=== PATIENT | female | born 1955 | race Caucasian/White ===

== ENCOUNTER → 2017-11-07 10:19 | Outpatient (CLI) | payer BC, OTHER, SELFPAY ==
[2017-11-07 11:04] LABS: Alanine Aminotransferase 20 U/L (12-78); Albumin Level 3.5 gm/dL (3.4-5.0); Albumin/Globulin Ratio 0.8 (1.1-1.8); Alkaline Phosphatase 148 U/L (46-116); Anion Gap 11.9 mEq/L (5-15); Aspartate Amino Transferase 13 U/L (15-37); Bilirubin,Total 0.4 mg/dL (0.2-1.0); Blood Urea Nitrogen 15 mg/dL (7-18); C-Reactive Protein 0.8 mg/L (0.0-0.9); Calcium 8.9 mg/dL (8.5-10.1); Carbon Dioxide 27 mmol/L (21.0-32.0); Chloride 105 mmol/L (98-107); Chol/HDL Ratio 2.7 (1-3.5); Cholesterol 131 mg/dL (140-200); Creatinine,Serum 1.29 mg/dL (0.55-1.02); Estimated Glomerular Filt Rate 42 ml/min (>60); GFR (African American) 50 ML/MIN (>60); Globulin 4.2 gm/dl (1.3-3.2); Glucose 103 mg/dL (74-106); HDL Cholesterol 49 mg/dL (29-89); LDL Cholesterol 61 mg/dL (0-130); Potassium 3.9 mmoL/L (3.5-5.1); Sodium 140 mmol/L (136-145); Total Protein,Serum 7.7 gm/dL (6.4-8.2); Triglycerides 104 mg/dL (30-200); VLDL Cholesterol 21 mg/dL (0-40)
[2017-11-07 12:01] LABS: Erythrocyte Sedimentation Rate 58 mm/hr (0-30)
[2017-11-10 19:15] LABS: RA Latex Turbid. <10.0 IU/mL (0.0-13.9)
[2017-11-11 18:33] LABS: Anti-Cyclic Citrullinated Pept 19 units (0-19)
[2017-11-11 18:34] LABS: Antinuclear Antibodies, IFA Positive (.)
== END ==
PROVIDERS: Visit Provider Nurse Practitioner Family
DX: M25.541 Pain in joints of right hand (principal); M25.50 Pain in unspecified joint; Z00.00 Encounter for general adult medical examination without abnormal findings
CPT/HCPCS: 36415; 80053; 80061; 84443; 85651; 86038; 86140; 86200; 86431

== ENCOUNTER → 2017-11-22 11:06 | Outpatient (CLI) | payer BC, OTHER, SELFPAY ==
--- NOTE | 2017-11-22 11:13 | XR_ITS ---
XR wrist RT min 3V HISTORY: Pain ITS.REASON: PAIN IN JOINT BILAT HAND ORDERING PHYSICIAN: Dejah Laughlin PATIENT AGE: 62 years COMPARISON: None FINDINGS: No fracture or dislocation. No lytic or blastic change. There is normal mineralization.. The joint spaces are well-preserved. No significant degenerative/arthritic changes. No erosive changes evident.. IMPRESSION: Negative wrist
--- NOTE | 2017-11-22 11:13 | XR_ITS ---
XR wrist LT min 3V HISTORY: Wrist pain ITS.REASON: PAIN IN JOINT BILAT HAND ORDERING PHYSICIAN: Dejah Laughlin PATIENT AGE: 62 years COMPARISON: None FINDINGS: No fracture or dislocation. No lytic or blastic change. There is normal mineralization.. The joint spaces are well-preserved. No significant degenerative/arthritic changes. There is a faint lucency of the distal shaft of the ulna measuring approximately 2 mm. This is of questioned clinical significance and only visible on the AP view. IMPRESSION: No acute finding of the wrist. Faint lucency of the distal ulna nonspecific. Follow-up may confirm stability
--- NOTE | 2017-11-22 11:13 | XR_ITS ---
XR hand RT min 3V HISTORY: Hand pain ITS.REASON: PAIN IN JOINT BILAT HAND ORDERING PHYSICIAN: Dejah Laughlin PATIENT AGE: 62 years COMPARISON: None FINDINGS: No fracture or dislocation. No lytic or blastic change. There is normal mineralization.. The joint spaces are well-preserved. No significant degenerative/arthritic changes. No erosive changes evident.. IMPRESSION: Negative right hand, no acute finding
--- NOTE | 2017-11-22 11:13 | XR_ITS ---
XR hand LT min 3V HISTORY: ITS.REASON: PAIN IN JOINT BILAT HAND ORDERING PHYSICIAN: Dejah Laughlin PATIENT AGE: 62 years COMPARISON: None FINDINGS: No fracture or dislocation. No lytic or blastic change. There is normal mineralization.. Mild osteoarthritic changes are present at the PIP and DIP of the second digit. No erosive changes evident. 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
== END ==
PROVIDERS: PCP Internal Medicine Adolescent Medicine; Visit Provider Nurse Practitioner Family
DX: M25.541 Pain in joints of right hand (principal); M25.542 Pain in joints of left hand
CPT/HCPCS: 73110; 73130

== ENCOUNTER → 2018-03-05 08:36 | Outpatient (CLI) | payer MEDICARE, OTHER, SELFPAY ==
--- NOTE | 2018-03-05 | CI_ITS ---
Cerebrovascular Exam Indications: 780.2 Syncope and collapse. IMPRESSIONS 1. The bilateral vertebral arteries are patent with normal antegrade flow. 2. Study suggests less than 20% stenosis involving the right internal carotid artery and the left internal carotid artery. History: Coronary artery disease. Risk factors: Hypertension. Hyperlipidemia. Carotid duplex study. Complete study and Doppler flow study including spectral analysis, color and rowley scale imaging. Location: Vascular laboratory. Patient status: Outpatient. Tables: Arterial flow: + +--------+--------+ Location V sys V ed + +--------+--------+ Right CCA - proximal 47.1cm/s 13.4cm/s + +--------+--------+ Right CCA - distal 69.9cm/s 18.9cm/s + +--------+--------+ Right ECA 178cm/s -------- + +--------+--------+ Right ICA - proximal 66cm/s 18.9cm/s + +--------+--------+ Right ICA - mid 56.6cm/s 22cm/s + +--------+--------+ Right ICA - distal 75.4cm/s 18.9cm/s + +--------+--------+ Right vertebral 56.6cm/s -------- + +--------+--------+ Left CCA - proximal 66.8cm/s 13.4cm/s + +--------+--------+ Left CCA - distal 68.4cm/s 19.6cm/s + +--------+--------+ Left ECA 87.2cm/s -------- + +--------+--------+ Left ICA - proximal 48.7cm/s 16.5cm/s + +--------+--------+ Left ICA - mid 85.6cm/s 19.6cm/s + +--------+--------+ Left ICA - distal 116cm/s 28.1cm/s + +--------+--------+ Left vertebral 43.2cm/s 0.8cm/s + +--------+--------+ Velocity ratios: + + + + + + Right, V sys Right, V ed Left, V sys Left, V ed + + + + + + Max ICA/dist CCA 1.08 1.16 1.7 1.43 + + + + + + (Report amended ) Electronically signed by: Kyle Zuniga [id number]
--- NOTE | 2018-03-05 08:45 | CA_ITS ---
PROCEDURE: 2-D M-mode and color Doppler study INDICATIONS FOR THE TEST: Chest pain COPD Heart Murmur Tobacco Smoking Palpitations Fatigue SyncopeX Edema HypertensionXDiabetes Mellitus Rheumatic Fever SOB SMALLS ObesityXHyperlipidemiaX Family History HD Additional History CAD BUBBLE STUDY DONE PATIENT INFORMATION HEIGHT: 65 WEIGHT:211 GENDER: Female B/P:144/67 2-D/M-MODE INTERPRETATION: 2-D MEASUREMENTS OBSERVED VALUES IN CMS Right Ventricular Dimension (RVDd) 2.6 Interventricular Septum (Thickness)(IVsd) 1.0 Left Ventricular Internal Dimensions(LVIDd) 5.6 Left Ventricular Posterior Wall (Thickness)(LVPWd) 1.0 Aortic Root 3.2 Aortic Cusp Separation 1.5 Left Atrial Dimensions (LAD) 4.2 2D 1. Left atrium is mildly enlarged, left ventricle is normal size, visually estimated ejection fraction 55% with no obvious regional wall motion abnormality. 2. The right atrium and right ventricle are normal size and contractility. 3. The aortic valve is minimally thickened and fibrosed, morphology is not well visualized. 4. The mitral and tricuspid valve are structurally normal. 5. Pulmonic valve is poorly visualized. 6. No significant pericardial effusion noted. DOPPLER INTERROGATION: Doppler interrogation of the aortic, mitral and tricuspid valve reveals presence of mild aortic, mild mitral and tricuspid regurgitation, tricuspid and enteric velocity insufficient for calculation of the right ventricular systolic pressure, grade 1 diastolic dysfunction seen with tissue Doppler evidence of raised left atrial pressure. Agitated saline contrast study fails to identify intracardiac shunt. CONCLUSION: 1. Left atrium is mildly enlarged, left ventricle is normal size, visually estimated ejection fraction 55% with no obvious regional wall motion abnormality, grade 1 diastolic dysfunction seen with tissue Doppler evidence of raised left atrial pressure. 2. Mild aortic, mild mitral and tricuspid regurgitation 3. Agitated saline contrast study fails to left ventricular ejection. 4. No significant pericardial effusion noted.
== END ==
PROVIDERS: PCP Internal Medicine Adolescent Medicine; Visit Provider Nurse Practitioner Family
DX: R55 Syncope and collapse (principal); R42 Dizziness and giddiness
CPT/HCPCS: 93306; 93880

== ENCOUNTER → 2018-06-22 15:57 | Outpatient (CLI) | payer MEDICARE, OTHER, SELFPAY ==
--- NOTE | 2018-06-22 16:04 | MM_ITS ---
MM Dig screening mamm BI w/CAD ORDERING PHYSICIAN : Jesus Colunga MD PATIENT AGE: 63 years GENDER: Female COMPARISON: May 2016, June 2017, April 2015 INDICATION: ITS.REASON: screening. No hormones. No new complaints. Family history. paternal aunt with breast cancer TECHNIQUE: Standard CC and MLO images were obtained. R2 CAD reviewed. FINDINGS: Low-density breast bilaterally with fairly generalized fatty replacement. No dominant mass nor suspicious calcifications either breast. Minimal residual fibroglandular elements. . No areas of concern. Bilateral follow-up in one year adequate. IMPRESSION: Stable bilateral mammogram. No significant new findings. Follow-up in one year Low-density breast. BI-RADS Category: 1 Negative RECOMMENDED FOLLOW-UP: 1YR 1 YEAR FOLLOW-UP (A letter has been sent to the patient regarding results of the study.)
== END ==
PROVIDERS: PCP Internal Medicine Adolescent Medicine; Visit Provider Obstetrics & Gynecology
DX: Z12.31 Encounter for screening mammogram for malignant neoplasm of breast (principal)
CPT/HCPCS: 77067

== ENCOUNTER → 2019-06-28 09:57 | Outpatient (CLI) | payer MEDICARE, OTHER, SELFPAY ==
--- NOTE | 2019-06-28 10:04 | XR_ITS ---
PROCEDURE: XR DEXA AXIAL SKELETON CLINICAL HISTORY: SCREENING COMPARISON: No exams were available for comparison FINDINGS: L1-L4 density is 1.156 grams/centimeters sq with T-score of -0.2. Right femoral neck density is 0.795 grams/centimeters sq with T-score -1.7 IMPRESSION: Osteopenia with moderate fracture risk. Treatment advised. Suggest follow-up exam June 2021 Dictated by: Kyle Zuniga MD 06/28/2019 15:46 Electronically signed by Kyle Zuniga MD in [place] 06/28/2019 15:46
== END ==
PROVIDERS: PCP Internal Medicine Adolescent Medicine; Visit Provider Obstetrics & Gynecology
DX: Z78.0 Asymptomatic menopausal state; M85.89 Other specified disorders of bone density and structure, multiple sites; Z13.820 Encounter for screening for osteoporosis
CPT/HCPCS: 77080

== ENCOUNTER → 2019-07-03 16:44 | Outpatient (CLI) | payer MEDICARE, OTHER, SELFPAY ==
--- NOTE | 2019-07-03 16:46 | MM_ITS ---
PROCEDURE: MM DIG SCREENING MAMM BI W/CAD Patient Age:64Y CLINICAL INDICATION: screening no hormones no new complaints Family history: Paternal aunt with breast cancer COMPARISON: [facility] DIG MAMM-SCREEN ABHAY from 04/29/2013 [facility] DIG MAMM-SCREEN ABHAY from 05/02/2014 [facility] DIG MAMM-SCREEN ABHAY from 05/04/2015 [facility] DIG MAMM-SCREEN ABHAY from 05/24/2016 [facility] DIG MAMM-SCREEN ABHAY W/CAD from 06/20/2017 [facility] MM Dig screening mamm BI w/CAD from 06/22/2018 TECHNIQUE: Standard CC and MLO images were obtained. R2 CAD reviewed. FINDINGS: Generalized fatty replacement, low-density breast pattern. Minimal residual fibroglandular elements mammography is more optimal in breast of this character. No dominant nor suspicious mass but no suspicious calcifications but no significant new findings. CAD computer review highlights no areas of concern either Bilateral follow-up 1 year recommended IMPRESSION: Stable bilateral mammogram. generalized fatty replacement with minimal residual fibroglandular elements . Bilateral follow-up 1 year recommended BI-RAD Category: 1 Negative FOLLOW-UP: 1YR 1 Year Follow-up (A letter has been sent to the patient regarding results of the study.) Dictated by: Nathan Waters MD 07/06/2019 11:14 Electronically signed by Nathan Waters MD in [place] 07/06/2019 11:14
== END ==
PROVIDERS: PCP Internal Medicine Adolescent Medicine; Visit Provider Obstetrics & Gynecology
DX: Z12.31 Encounter for screening mammogram for malignant neoplasm of breast (principal)
CPT/HCPCS: 77067

== ENCOUNTER → 2019-09-16 09:10 | Outpatient (POV) | payer MEDICARE, OTHER, SELFPAY ==
[2019-09-16 12:07] LABS: Alanine Aminotransferase 14 U/L (12-78); Albumin Level 3.2 gm/dL (3.4-5.0); Albumin/Globulin Ratio 0.9 (1.1-1.8); Alkaline Phosphatase 115 U/L (46-116); Anion Gap 13.2 mEq/L (5-15); Aspartate Amino Transferase 11 U/L (15-37); Bilirubin,Total 0.4 mg/dL (0.2-1.0); Blood Urea Nitrogen 17 mg/dL (7-18); Calcium 8.9 mg/dL (8.5-10.1); Carbon Dioxide 26 mmol/L (21.0-32.0); Chloride 105 mmol/L (98-107); Chol/HDL Ratio 3.1 (1-3.5); Cholesterol 160 mg/dL (140-200); Creatinine,Serum 1.13 mg/dL (0.55-1.02); Estimated Glomerular Filt Rate 48 ml/min (>60); GFR (African American) 58 ML/MIN (>60); Globulin 3.6 gm/dl (1.3-3.2); Glucose 98 mg/dL (74-106); HDL Cholesterol 52 mg/dL (29-89); LDL Cholesterol 87 mg/dL (0-130); Potassium 4.2 mmoL/L (3.5-5.1); Sodium 140 mmol/L (136-145); Thyroid Stimulating Hormone 3.27 uIU/ml (0.358-3.740); Total Protein,Serum 6.8 gm/dL (6.4-8.2); Triglycerides 105 mg/dL (30-200); VLDL Cholesterol 21 mg/dL (0-40)
[2019-09-18 07:40] LABS: Vitamin D 25 Hydroxy 20.9 ng/mL (30.0-100.0)
== END ==
PROVIDERS: Visit Provider Nurse Practitioner Family
DX: I10 Essential (primary) hypertension (principal); E78.5 Hyperlipidemia, unspecified; M85.80 Other specified disorders of bone density and structure, unspecified site; E55.9 Vitamin D deficiency, unspecified
CPT/HCPCS: 36415; 80053; 80061; 82652; 84443

== ENCOUNTER → 2019-12-30 09:03 | Outpatient (CLI) | payer MEDICARE, OTHER, SELFPAY ==
--- NOTE | 2019-12-30 09:03 | XR_ITS ---
PROCEDURE: XR DEXA AXIAL SKELETON CLINICAL HISTORY: osteoporosis COMPARISON: No exams were available for comparison FINDINGS: Right femoral neck density is 0.653 grams/centimeters sq with T-score -1.8. Left total femur density is 0.792 grams/centimeters sq with a T-score of -1.2. L1-L4 density has a T-score -0 6. IMPRESSION: Osteopenia with moderate fracture risk. Treatment advised. Suggest follow-up exam in 2 years Dictated by: Kyle Zuniga MD 12/30/2019 14:58 Electronically signed by Kyle Zuniga MD in [place] 12/30/2019 14:58
== END ==
PROVIDERS: PCP Internal Medicine Adolescent Medicine; Visit Provider Obstetrics & Gynecology
DX: M81.0 Age-related osteoporosis without current pathological fracture (principal)
CPT/HCPCS: 77080

== ENCOUNTER → 2020-03-16 07:10 | Outpatient (CLI) | payer MEDICARE, OTHER, SELFPAY ==
--- NOTE | 2020-03-16 | CA_ITS ---
APPROVED REPORT Exam: Pharmacologic Technologist: Tina Rodríguez Ht: 5 ft 5 in Wt: 214 lbs BSA: 2.04 m2 HR: 50 bpm BP: 143/63 mmHg Indications: Angina, CAD, Dizziness Medical History Medications: Atorvastatin,,,,, Buspirone,,,,, Calcium,,,,, Vitamin D,,,,, DOxazosin,,,,, Sertraline,,,,, Raloxifene,,,,, Potassium,,,,, Stress Test Details Test: LEXISCAN HR Resting HR: 51 bpm Max Heart Rate (APMHR): 153 bpm Max HR Achieved: 62 bpm Target HR (85% APMHR): 130 bpm % of APMHR: 40 Recovery HR: 53 bpm BP Resting BP: 143.0/63.0 mmHg Max BP: 143.0/63.0 mmHg Recovery BP: 129.0/61.0 mmHg ECG Clinical Exercise duration: 04:00 min Highest Stage Achieved: Stress ECG Conclusion Resting ECG: Sinus bradycardia Lexiscan portion completed. Patient complained of shortness of breath during peak infusion. Symptoms: Shortness of breath during peak infusion, resolved in recovery. No chest pain. Arrhythmias/Ectopy: No ectopy ST-T Changes: Less than 1.[address] depression. Conclusion: Images to follow. Electronically signed by : Vladislav Martin, 03/16/2020 19:24:08
--- NOTE | 2020-03-16 07:10 | NM_ITS ---
APPROVED REPORT Exam: Nuclear Stress Test Indication: Chest pain, CAD, HTN, High cholesterol, Family history Patient Location: Outpatient Stress Tech: Tina Rodríguez [place] Tech:Gisel Fraire, ARRT, RT (R)(N) History: Chest pain, CAD, HTN, High cholesterol, Family history Procedure: Patient received a 0.4 mg of intravenous Lexiscan, resting heart rate 50 bpm, resting blood pressure 143/63 mmHg, with Lexiscan maximum heart rate achived was 55 bpm which is Less than 85 % of the maximum predicted heart rate and blood pressure was 118/73 mmHg. With Lexiscan, patient denied any complaint of chest pain. Electrocardiogram Resting electrocardiogram shows sinus bradycardia, with Lexiscan there is less than 1.[address] segment depression noted from baseline EKG, the EKG portion of the Lexiscan Myoview is nondiagnostic. Cardiac Stress and Resting SPECT Images: Cardiac Stress and Resting SPECT images were obtained using technetium 99m Myoview 32.6 mCi stress and 10.73 mCi at rest. Gated SPECT with analysis of segmental wall motion and calculation of the ejection fraction also done. Cardiac stress and resting SPECT images show decreases activity in the anterior wall which improves on the resting images raising the concerns for presence of reversible ischemia, computer derived ejection fraction is 65% with mild anterior apical wall hypokinesis, right ventricle is normal size and contractility. Conclusion: 1. The EKG portion of the Lexiscan Myoview is nondiagnostic. 2. Scintigraphic evidence of mild reversible ischemia involving the anterior apical wall, computer derived ejection fraction 65% with segmental wall motion abnormality described above, right ventricle is normal size and contractility. 3. Abnormal Lexiscan Myoview study. Electronically signed by : Vladislav Martin, 03/16/2020 19:27:23
--- NOTE | 2020-03-16 07:19 | CA_ITS ---
APPROVED REPORT EXAM: Comprehensive 2D, Doppler, and color-flow Echocardiogram Cloud Systems Architect: Kristin Garay RVT Ht: 5 ft 5 in Wt: 214lbs BSA: 2.04 BP: 170/80 mmHg Indications: ANGINA,CAD,BRADYCARDIA,STENT,HX SVT,MURMUR,HTN,HLD 2D Dimensions LVOT 1.43 cm (M/F) 1.5-2.5 M-Mode Dimensions RVDd 2.96 cm (0.9-2.6) LVDd 5.89 cm (3.5-5.7) LVDs 4.00 cm (3.5-5.7) IVSd 0.61 cm (0.6-1.1) PWd 0.75 cm (0.6-1.1) EF (Teich) 59.40% FS 32.10% EDV (Teich) 172.50 mL ESV (Teich) 70.00 mL LV Diastology E/A Ratio 0.90 Mitral Valve MV A Velocity 94.00 (40-130 cm/s) Left Ventricle Left atrium is mildly enlarged, left ventricle is normal size, mild concentric left ventricular hypertrophy, visually estimated ejection fraction 55% with no regional wall motion abnormality, grade 1 diastolic dysfunction seen without tissue Doppler evidence of raise left atrial pressure. Right Ventricle Right atrium and right ventricular normal size and contractility. Aortic Valve Aortic valve is minimally thickened and fibrosed, leaflet continue to display good mobility, there is no aortic stenosis, there is mild aortic insufficiency. Mitral Valve Mitral valve leaflets are minimally thickened, there is mild mitral regurgitation. Tricuspid Valve Tricuspid valve grossly normal, there is mild tricuspid regurgitation, tricuspid regurgitation jet velocity is inadequate for calculation of the right ventricular systolic pressure. Pulmonic Valve Pulmonic valve is poorly visualized. Great Vessels Aortic root is normal size. Pericardium No significant pericardial effusion noted. Conclusion 1. Mildly enlarged left atrium, normal left ventricular size, mild concentric left ventricular hypertrophy, visually estimated ejection fraction 55% with no regional wall motion abnormality, grade 1 diastolic dysfunction seen without tissue Doppler evidence of raise left atrial pressure. 2. Thickened and calcified aortic valve without aortic stenosis, there is mild aortic insufficiency. 3. Mild mitral and tricuspid regurgitation. 4. No significant pericardial effusion noted. Electronically signed by : Vladislav Martin 03/16/2020 17:43:50
--- NOTE | 2020-03-16 07:36 | HMH.ITSHM ---
Current Home Medications as stated by this patient Tiny Garvin or new accounts representative. []VERAPAMIL SERTRALINE POTASSIUM VITAMIN D2 CALCIUM BUSPIRONE ATORVASTATIN POTASSIUM RALOXIFENE CARDURA
== END ==
PROVIDERS: PCP Internal Medicine Adolescent Medicine; Visit Provider Nurse Practitioner Family
DX: I20.9 Angina pectoris, unspecified (principal); R01.1 Cardiac murmur, unspecified; R06.00 Dyspnea, unspecified
CPT/HCPCS: 78452; 93017; 93306; A9502; J2785

== ENCOUNTER 2020-03-30 08:52 | Day surgery (SDC) | payer MEDICARE, OTHER, SELFPAY ==
[2020-03-30] VITALS (12 sets, daily range): BP systolic 103–163; BP diastolic 52–90; PULSE 41–63; RESP 16–20; O2SAT 90–96; BMI 35.7
--- NOTE | 2020-03-30 | IR_ITS ---
APPROVED REPORT Patient Location: Outpatient Hand Bander: JAIDA Tim RT (R) PROCEDURES Left heart catheterization Left ventriculogram Selective coronary angiogram INDICATION Abnormal Myoview, Angina pectoris Informed consent was obtained prior to the procedure. COMPLICATIONS NONE Estimated Blood Loss: LESS THAN 10 ML TECHNIQUE One percent lidocaine used to anesthetize the right anterior aspect of the wrist. The right radial artery was accessed via the Seldinger technique. A 6 Maori sheath was placed in the right radial artery. 2.5 mg of verapamil, 800 mcg of nitroglycerin, 1mg Lidocaine and 5000 U Heparin were given through the arterial sheath. The trap catheter was also used to perform left heart catheterization, left ventriculogram and selective coronary angiogram. At the end of the procedure the sheath was removed good hemostasis was achieved using Traclet band, patient was transferred to the postop holding area in stable condition. ANGIOGRAPHIC RESULTS The left main artery Normal The left anterior descending artery Has a stent in the proximal segment widely patent free of in-stent restenosis with excellent proximal distal transitioning. 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 Widely patent proximal LAD stent Normal ejection fraction Normal left ventricular end-diastolic pressure PLAN 1. Medical management Electronically signed by : Lucian Alvarado, 03/30/2020 11:17:50
[2020-03-30 09:30] LABS: Basophils % 0.4 % (0.1-2.0); Eosinophils # 0.1 K/mm3 (0.0-0.4); Eosinophils % 1.6 % (0.1-12.0); Hematocrit 35.2 % (37.0-47.0); Lymphocytes # 2.5 K/mm3 (0.7-4.5); Lymphocytes % 39.3 % (10-50); Mean Corpuscular HGB Conc 33.9 g/dL (31.8-35.4); Mean Corpuscular Volume 94.2 fl (81-99); Mean Platelet Volume 8.1 fl (7.4-10.4); Monocytes # 0.3 K/mm3 (0.1-1.0); Monocytes % 5.4 % (1.7-9.3); Neutrophils # 3.4 K/mm3 (1.8-7.8); Neutrophils % 53.4 % (37.0-80.0); Platelet Count 261 K/mm3 (142-424); Red Blood Count 3.74 M/mm3 (4.20-5.40); Red Cell Distribution Width 13.5 % (11.5-17.5); White Blood Count 6.3 K/mm3 (4.8-10.8)
[2020-03-30 09:35] LABS: Chloride 106 mmol/L (98-107); Sodium 140 mmol/L (136-145)
[2020-03-30 09:38] LABS: Blood Urea Nitrogen 18 mg/dl (7-17); Carbon Dioxide 26 mmol/L (22.0-30.0); Creatinine Clearance Estimated 70 mL/min (50-200); Estimated Glomerular Filt Rate 45 ml/min (>60); GFR (African American) 54 ML/MIN (>60)
[2020-03-30 09:39] LABS: Glucose 97 mg/dl (74-100)
== END 2020-03-30 14:38 | disposition home or self-care (01) ==
LOC: CATHLAB 08:54
PROVIDERS: PCP Internal Medicine Adolescent Medicine; Visit Provider Internal Medicine
DX: I25.118 Atherosclerotic heart disease of native coronary artery with other forms of angina pectoris (principal); Z95.5 Presence of coronary angioplasty implant and graft; I25.82 Chronic total occlusion of coronary artery; I11.0 Hypertensive heart disease with heart failure; I50.32 Chronic diastolic (congestive) heart failure; E78.5 Hyperlipidemia, unspecified
CPT/HCPCS: 80048; 85025; 93458; 99152; C1725; C1769; J1644; Q9967

== ENCOUNTER → 2020-07-06 12:34 | Outpatient (CLI) | payer MEDICARE, OTHER, SELFPAY ==
--- NOTE | 2020-07-06 12:35 | MM_ITS ---
PROCEDURE: MM DIG SCREENING MAMM BI W/CAD Digital Breast Tomosynthesis Included CLINICAL INDICATION: Routine Screening Mammogram History of breast cancer in the patient's paternal aunt. COMPARISON: MG [facility] DIG MAMM-SCREEN ABHAY W/CAD from 06/20/2017 [facility] MM Dig screening mamm BI w/CAD from 06/22/2018 MG MM DIG SCREENING MAMM BI W/CAD from 07/03/2019 TECHNIQUE: Standard CC and MLO images and 3D Tomosynthesis was obtained. R2 CAD reviewed. FINDINGS: Composed primarily of fat with minimal scattered fibroglandular densities seen throughout each breast. There is a mole marker medial left breast. There are couple of benign-appearing microcalcifications right breast. There is faint arterial calcification left breast there is no suspicious lesion in either breast and no suspicious microcalcifications. IMPRESSION: Fibrofatty parenchyma with no suspicious lesions seen BI-RAD Category: 2 Benign Finding(s) FOLLOW-UP: 1YR 1 Year Follow-up (A letter has been sent to the patient regarding results of the study.) Dictated by: Dr. Ghulam Espitia MD 07/07/2020 10:19 Dr. Ghulam Espitia MD in [place] 07/07/2020 10:19
== END ==
PROVIDERS: PCP Internal Medicine Adolescent Medicine; Visit Provider Obstetrics & Gynecology
DX: Z12.31 Encounter for screening mammogram for malignant neoplasm of breast (principal)
CPT/HCPCS: 77063; 77067

== ENCOUNTER → 2020-10-22 09:28 | Outpatient (CLI) | payer MEDICARE, OTHER, SELFPAY ==
[2020-10-22 11:35] LABS: Chloride 108 mmol/L (98-107); Potassium 4.1 mmoL/L (3.5-5.1); Sodium 142 mmol/L (136-145)
[2020-10-22 11:38] LABS: Alanine Aminotransferase 11 U/L (12-78); Albumin/Globulin Ratio 1.2 (1.1-1.8); Alkaline Phosphatase 89 U/L (38-126); Anion Gap 13.1 mEq/L (5-15); Aspartate Amino Transferase 19 U/L (14-36); Bilirubin,Total 0.5 mg/dl (0.2-1.3); Blood Urea Nitrogen 17 mg/dl (7-17); Calcium 9.7 mg/dl (8.4-10.2); Carbon Dioxide 25 mmol/L (22.0-30.0); Chol/HDL Ratio 2.8 (1-3.5); Cholesterol 155 mg/dl (140-200); Estimated Glomerular Filt Rate 41 ml/min (>60); GFR (African American) 49 ML/MIN (>60); Globulin 3.4 g/dL (1.3-3.2); Glucose 112 mg/dl (74-100); HDL Cholesterol 55 mg/dl (40-60); Total Protein,Serum 7.4 g/dl (6.3-8.2); Triglycerides 176 mg/dl (30-150); VLDL Cholesterol 35 mg/dL (0-40)
[2020-10-22 11:49] LABS: Direct LDL Cholesterol 59.99 mg/dL (100-129)
[2020-10-22 11:54] LABS: 25-OH Vitamin D, Total 41.8 ng/mL (30-100)
== END ==
PROVIDERS: Visit Provider Nurse Practitioner Family
DX: I10 Essential (primary) hypertension (principal); E78.5 Hyperlipidemia, unspecified; E55.9 Vitamin D deficiency, unspecified
CPT/HCPCS: 36415; 80053; 80061; 82306

== ENCOUNTER → 2021-04-22 09:48 | Outpatient (CLI) | payer MEDICARE, OTHER, SELFPAY ==
[2021-04-22 10:48] LABS: Chloride 108 mmol/L (98-107); Potassium 4.1 mmoL/L (3.5-5.1); Sodium 142 mmol/L (136-145)
[2021-04-22 10:50] LABS: Blood Urea Nitrogen 17 mg/dl (7-17); Estimated Glomerular Filt Rate 41 ml/min (>60); GFR (African American) 49 ML/MIN (>60)
[2021-04-22 10:51] LABS: Alanine Aminotransferase 9 U/L (12-78); Albumin/Globulin Ratio 1.4 (1.1-1.8); Alkaline Phosphatase 90 U/L (38-126); Anion Gap 13.1 mEq/L (5-15); Aspartate Amino Transferase 18 U/L (14-36); Bilirubin,Total 0.5 mg/dl (0.2-1.3); Calcium 9.4 mg/dl (8.4-10.2); Carbon Dioxide 25 mmol/L (22.0-30.0); Cholesterol 138 mg/dl (140-200); Globulin 2.9 g/dL (1.3-3.2); Glucose 102 mg/dl (74-100); Total Protein,Serum 6.9 g/dl (6.3-8.2); Triglycerides 166 mg/dl (30-150); VLDL Cholesterol 33 mg/dL (0-40)
[2021-04-22 10:52] LABS: Chol/HDL Ratio 2.8 (1-3.5); HDL Cholesterol 50 mg/dl (40-60)
[2021-04-22 11:27] LABS: Direct LDL Cholesterol 60.81 mg/dL (100-129)
[2021-04-22 11:49] LABS: Hemoglobin A1C 5.4 % (4.0-6.0)
== END ==
PROVIDERS: Visit Provider Nurse Practitioner Family
DX: I25.10 Atherosclerotic heart disease of native coronary artery without angina pectoris (principal); I10 Essential (primary) hypertension; R73.01 Impaired fasting glucose
CPT/HCPCS: 36415; 80053; 80061; 83036

== ENCOUNTER → 2021-07-08 15:51 | Outpatient (CLI) | payer MEDICARE, OTHER, SELFPAY ==
--- NOTE | 2021-07-08 15:51 | MM_ITS ---
PROCEDURE INFORMATION: Exam: MG Bilateral Screening 3D Mammography Exam date and time: 07/08/2021 3:51 PM Age: 66 years old Clinical indication: Screening mammogram TECHNIQUE: Imaging protocol: Bilateral screening tomosynthesis and 2D mammography including computer-aided detection (CAD) when performed. COMPARISON: 1. MG MM DIG SCREENING MAMM BI W/CAD 07/06/2020 1:04 PM 2. MG MM DIG SCREENING MAMM BI W/CAD 07/03/2019 4:52 PM 3. MG [facility] MM Dig screening mamm BI w/CAD 06/22/2018 4:14 PM 4. MG [facility] DIG MAMM-SCREEN ABHAY W/CAD 06/20/2017 10:30 AM FINDINGS: MAMMOGRAPHY: Breast composition: There are scattered areas of fibroglandular density. Mass: None. Architectural distortion: No new or suspicious architectural distortion. Calcifications: No new or suspicious calcifications are present Asymmetric density: No new or suspicious asymmetric density is present Skin thickening: None. Axillary adenopathy: None. IMPRESSION: No mammographic evidence of malignancy. Recommend annual screening mammography unless otherwise clinically indicated. ASSESSMENT: BI-RADS category 1: Negative
== END ==
PROVIDERS: PCP Internal Medicine Adolescent Medicine; Visit Provider Obstetrics & Gynecology
DX: Z12.31 Encounter for screening mammogram for malignant neoplasm of breast (principal)
CPT/HCPCS: 77063; 77067

== ENCOUNTER → 2022-07-22 08:33 | Outpatient (CLI) | payer MEDICARE, OTHER, SELFPAY ==
--- NOTE | 2022-07-22 08:36 | MM_ITS ---
PROCEDURE INFORMATION: Exam: MG Bilateral Screening 3D Mammography Exam date and time: 07/22/2022 8:33 AM Age: 67 years old Clinical indication: Screening examination. A paternal aunt had breast cancer. TECHNIQUE: Imaging protocol: Bilateral Screening tomosynthesis and 2D mammography including computer-aided detection (CAD) when performed. COMPARISON: 1. MG MM DIG SCREENING MAMM BI W/CAD 07/08/2021 3:56 PM 2. MG MM DIG SCREENING MAMM BI W/CAD 07/06/2020 1:04 PM 3. MG MM DIG SCREENING MAMM BI W/CAD 07/03/2019 4:52 PM 4. MG [facility] MM Dig screening mamm BI w/CAD 06/22/2018 4:14 PM FINDINGS: MAMMOGRAPHY: Breast composition: There are scattered areas of fibroglandular density. Mass: None. Architectural distortion: None. Calcifications: No suspicious calcifications. Asymmetric density: None. Skin thickening: None. Axillary adenopathy: None. IMPRESSION: No mammographic evidence of malignancy. Annual screening is recommended unless otherwise clinically indicated. ASSESSMENT: BI-RADS Category 1: Negative
--- NOTE | 2022-07-22 08:36 | XR_ITS ---
FINAL REPORT TECHNIQUE: Bone densitometry calculations of the lumbar spine and hips were obtained. CLINICAL HISTORY: . post menopausal screening COMPARISON: 12/30/2019 FINDINGS: DEXA BONE DENSITY AXIAL SKELETON Using L1-4, the bone mineral density of the spine is 1.022 g/cm2, corresponding to T-score of -0.2. Previously measured 0.983 g/cm2, corresponding to T-score of -0.6. Using the right hip, the bone mineral density of the femoral neck is 0.661 g/cm2, corresponding to a T-score of -1.7. Previously measured 0.653 g/cm2, corresponding to T-score of -1.8. Using the left hip, the bone mineral density of the femoral neck is 0.725 g/cm2, corresponding to a T-score of -1.1. Previously measured 0.792 g/cm2, corresponding to T-score of -1.2. NOTE: T-score: Standard deviation compared with peak bone mass of young adult mean. *Following the recommendations of the International Society of Bone densitometry, classification of hip BMD is based on the lower of two T-scores; total hip or femoral neck. IMPRESSION: Diminished bone mineral density of the hips consistent with osteopenia. FRAX not reported because patient is being treated for osteoporosis. Reviewed, Interpreted and Dictated by Ruben Almeida MD Transcribed by Dianne Mir Authenticated and [facility]
== END ==
PROVIDERS: PCP Internal Medicine Adolescent Medicine; Visit Provider Nurse Practitioner Family
DX: Z12.31 Encounter for screening mammogram for malignant neoplasm of breast (principal); Z78.0 Asymptomatic menopausal state
CPT/HCPCS: 77063; 77067; 77080

== ENCOUNTER 2022-11-21 16:34 | Emergency (ER) | payer MEDICARE, OTHER, SELFPAY ==
[2022-11-21 16:34] VITALS: BP 199/93; PULSE 75; RESP 18; TEMP 36.7; O2SAT 98; BMI 36.4
--- NOTE | 2022-11-21 17:47 | HMH.EDGENADL ---
Discharge Plan Disposition Patient Disposition: Home, Self-Care Condition: Good Chief Complaint: Wound/Laceration Prescriptions Prescriptions: No Action calcium carbonate [Calcium 500] 500 mg calcium (1,250 mg) tablet 500 mg PO DAILY potassium chloride [Klor-Con] 20 mEq packet 20 meq PO BID atorvastatin [Lipitor] 20 mg tablet 20 mg PO DAILY verapamil 240 mg capsule,ext rel. pellets 24 hr 240 mg PO DAILY ergocalciferol (vitamin D2) 2,000 unit tablet 2,000 unit PO DAILY raloxifene 60 mg tablet 60 mg PO ONCE Qty: 30 11RF buspirone 5 mg tablet 5 mg PO TID sertraline [Zoloft] 25 mg tablet 25 mg PO DAILY doxazosin 4 mg tablet 4 mg PO BID Qty: 60 2RF Referrals Follow up/Referrals: Charles Pyle MD [Primary Care Provider] - See instructions Clinical Impressions Clinical Impression: Laceration Instructions Patient Instructions: DI for Laceration Repair Discharge ED Provider: Prakash Hinton General Adult HPI General Chief complaint: Wound/Laceration Stated complaint: ao 11/21 fall, head laceration, h/a Time Seen by Provider: 11/21/22 17:00 Mode of Arrival: Ambulatory Source of Information: Patient Limitations: No Limitations Description of Symptoms (Recalled from ER Triage Doc. by RN): PT WAS RAKING LEAVES AND PUTTING BRANCHES IN TRASH CAN, LID HIT PT IN HEAD. LACERATION TO SCALP ABOUT 1 INCH. DENIES LOC. NO OTHER INJURIES History of Present Illness HPI narrative: 67yo F presents to the ER after being struck on top of the head by a trash can lid. No LOC. Noted bleeding from her scalp. Uncertain last tetanus shot Related Data Home Medications Medication Instructions Recorded Confirmed atorvastatin 20 mg tablet (Lipitor) 20 mg PO DAILY cholestrol 11/20/17 07/05/21 calcium carbonate 500 mg calcium 500 mg PO DAILY Supplement 11/20/17 07/05/21 (1,250 mg) tablet (Calcium 500) potassium chloride 20 mEq oral 20 meq PO BID Supplement 11/20/17 07/05/21 packet (Klor-Con) verapamil 240 mg 24 hr 240 mg PO DAILY blood pressure 11/21/17 07/05/21 capsule,extended release buspirone 5 mg tablet 5 mg PO TID mood 11/20/18 07/05/21 sertraline 25 mg tablet (Zoloft) 25 mg PO DAILY mood 11/20/18 07/05/21 ergocalciferol (vitamin D2) 50 mcg 2,000 unit PO DAILY Supplement 10/04/19 07/05/21 (2,000 unit) tablet Previous Rx's Medication Instructions Recorded doxazosin 4 mg tablet 4 mg PO BID blood pressure #60 tabs 04/01/20 raloxifene 60 mg tablet 60 mg PO ONCE mood #30 tabs 07/05/21 Allergies Allergy/AdvReac Type Severity Reaction Status Date / Time hydrochlorothiazide AdvReac Severe pancreatiti Verified 07/05/21 10:17 s [facility] Disclaimer: The information contained in this section may have been updated after the patient was seen, as this information can be updated by other users. Social History Smoking Status: Never smoker alcohol intake: never substance use type: denies use current occupational status: retired Travel in the last 8 weeks: None household members: spouse housing: house current occupational exposures/hazards: No caffeine: Yes ROS Obtained: Yes Systems reviewed as appropriate & no additional complaints except as documented Physical Exam General General appearance: alert and in no apparent distress Head Head exam: other (3 cm laceration over left parietal) Eye Eye exam: Present normal appearance, PERRL and EOMI Neck Neck exam: Present full ROM and trachea midline; Absent tenderness Respiratory Respiratory exam: Present normal lung sounds bilaterally; Absent respiratory distress Cardiovascular Cardiovascular exam: Present regular rate and normal rhythm Neurological Exam Neurological exam: Present alert, oriented X3 and CN II-XII intact Psychiatric Psychiatric exam: Present normal affect Skin Skin exam: Present warm and other (3 cm laceration over
[2022-11-21 18:03] VITALS: BP 195/93; PULSE 80; RESP 17; TEMP 36.6; O2SAT 97
== END 2022-11-21 18:06 | disposition home or self-care (01) ==
PROVIDERS: Emergency Provider Family Medicine; PCP Internal Medicine Adolescent Medicine
DX: S01.01XA Laceration without foreign body of scalp, initial encounter (principal); W26.8XXA Contact with other sharp object(s), not elsewhere classified, initial encounter; Z23 Encounter for immunization
CPT/HCPCS: 12002; 90471; 90715; 96372; 99283

== ENCOUNTER → 2023-08-01 12:46 | Outpatient (CLI) | payer MEDICARE, OTHER, SELFPAY ==
--- NOTE | 2023-08-01 12:49 | MM_ITS ---
PROCEDURE INFORMATION: Exam: MG Bilateral Screening 3D Mammography Exam date and time: 08/01/2023 12:55 PM Age: 68 years old Clinical indication: Screening mammogram TECHNIQUE: Imaging protocol: Bilateral Screening tomosynthesis and 2D mammography including computer-aided detection (CAD) when performed. COMPARISON: 1. MG MM DIG SCREENING MAMM BI W/CAD 07/22/2022 8:33 AM 2. MG MM DIG SCREENING MAMM BI W/CAD 07/08/2021 3:56 PM 3. MG MM DIG SCREENING MAMM BI W/CAD 07/06/2020 1:04 PM 4. MG MM DIG SCREENING MAMM BI W/CAD 07/03/2019 4:52 PM FINDINGS: MAMMOGRAPHY: Breast composition: There are scattered areas of fibroglandular density. Mass: None. Architectural distortion: No new or suspicious architectural distortion. Calcifications: No new or suspicious calcifications are present Asymmetric density: No new or suspicious asymmetric density is present Skin thickening: None. Axillary adenopathy: None. IMPRESSION: No mammographic evidence of malignancy. Recommend annual screening mammography unless otherwise clinically indicated. ASSESSMENT: BI-RADS category 1: Negative
== END ==
PROVIDERS: PCP Internal Medicine Adolescent Medicine; Visit Provider Internal Medicine Adolescent Medicine
DX: Z12.31 Encounter for screening mammogram for malignant neoplasm of breast (principal)
CPT/HCPCS: 77063; 77067

== ENCOUNTER 2023-11-03 09:38 | Outpatient (CLI) | payer MEDICARE, OTHER, SELFPAY ==
--- NOTE | 2023-11-03 | CA_ITS ---
FINAL REPORT TECHNIQUE: Color Doppler, duplex Doppler and rowley scale sonography of the bilateral neck arterial vasculature was performed. Velocities were measured in the carotid arteries. Stenosis evaluation based on the validated velocity criteria. CLINICAL HISTORY: DIZZINESS,SLURRED SPEECH,HTN FINDINGS: The peak systolic velocity of the right common carotid artery is 67 cm/s. The peak systolic velocity of the right internal carotid artery is 62 cm/s and end diastolic velocity 14 cm/s. The ICA/CCA ratio is 0.92. A small amount of plaque is present. The right external carotid artery is patent. The right vertebral artery is patent with antegrade flow. The peak systolic velocity of the left common carotid artery is 75 cm/s. The peak systolic velocity of the left internal carotid artery is 109 cm/s and end diastolic velocity 16 cm/s. The ICA/CCA ratio is 1.9. A small amount of plaque is present. The left external carotid artery is patent.The left vertebral artery is patent with antegrade flow. IMPRESSION: Less than 50% bilateral carotid stenoses. Bilateral patent vertebral arteries with antegrade flow. If indicated, CTA or MRA could further evaluate. Reviewed, Interpreted and Dictated by Kate Henson MD Transcribed by Odilia Ortiz Authenticated and [facility]
== END 2023-11-03 23:59 ==
LOC: RT 09:39
PROVIDERS: PCP Internal Medicine Adolescent Medicine; Visit Provider Nurse Practitioner Family
DX: R42 Dizziness and giddiness (principal); R47.81 Slurred speech; I10 Essential (primary) hypertension
CPT/HCPCS: 93880

== ENCOUNTER 2023-11-12 15:47 | Emergency (ER) | payer MEDICARE, OTHER, SELFPAY ==
[2023-11-12 17:08] VITALS: BP 0/0; PULSE 0; RESP 0; TEMP -17.7; TEMP 0
== END 2023-11-12 16:42 | disposition left against medical advice (07) ==
PROVIDERS: Emergency Provider Nurse Practitioner Family; PCP Internal Medicine Adolescent Medicine
DX: Z53.21 Procedure and treatment not carried out due to patient leaving prior to being seen by health care provider (principal)

== ENCOUNTER 2023-12-08 06:53 | Outpatient (CLI) | payer MEDICARE, OTHER, SELFPAY ==
[2023-12-08 07:31] LABS: Blood Urea Nitrogen 18 mg/dl (7-17); Estimated Glomerular Filt Rate 40 ml/min (>60); GFR (African American) 49 ML/MIN (>60)
--- NOTE | 2023-12-08 07:35 | MR_ITS ---
FINAL REPORT CLINICAL HISTORY: SLURRED SPEECH x 6 weeks ago has not happened since then 20 ml prohance given COMPARISON: None FINDINGS: Multiplanar MR imaging of the brain was performed without and with contrast. There is mild age-appropriate atrophy. Scattered foci of increased T2 signal are seen in the cerebral white matter that have a nonspecific appearance but likely represent mild chronic ischemic/gliotic changes. There is a small chronic right periventricular lacunar infarct identified as well. There is no evidence of intracranial hemorrhage or mass. No abnormal ventricular dilatation is identified. There is no evidence of shift of the midline structures. No abnormal extra-axial fluid collection is seen. No area of abnormal restricted diffusion is identified. The posterior fossa and brainstem have an unremarkable appearance. No abnormal contrast enhancement is seen. Normal major vessel vascular flow voids are seen. IMPRESSION: Mild atrophy and chronic ischemic/gliotic changes, with a small chronic right periventricular lacunar infarct. No acute intracranial abnormality. Reviewed, Interpreted and Dictated by Glenroy Nicolas III, MD Transcribed by Brandy Torres Authenticated and [facility]
[2023-12-08] MEDS: SODIUM CHLORIDE 0.9% 10ML SYR (RAD ONLY) 10 ML IV (08:23)
[2023-12-08] MEDS: GADOTERIDOL INJ 17ML SYRINGE 20 ML IV (08:23)
== END 2023-12-08 23:59 ==
LOC: RAD 06:53
PROVIDERS: PCP Nurse Practitioner Family; Visit Provider Nurse Practitioner Family
DX: R47.81 Slurred speech (principal)
CPT/HCPCS: 36415; 70553; 82565; 84520; A9576

== ENCOUNTER 2023-12-14 09:52 | Outpatient (CLI) | payer MEDICARE, OTHER, SELFPAY | END 2023-12-14 23:59 | disposition home or self-care (01) | LOC: RT 09:53 | PROVIDERS: PCP Nurse Practitioner Family; Visit Provider Nurse Practitioner Family | DX: R00.2 Palpitations (principal); Z86.73 Personal history of transient ischemic attack (TIA), and cerebral infarction without residual deficits | CPT/HCPCS: 93225 ==

== ENCOUNTER 2023-12-28 08:34 | Outpatient (CLI) | payer MEDICARE, OTHER, SELFPAY ==
--- NOTE | 2023-12-28 | CA_ITS ---
APPROVED REPORT EXAM: Comprehensive 2D, Doppler, and color-flow Echocardiogram Bottom Saw Operator: Marilu Chaudhry CRT Ht: 5 ft 5 in Wt: 215lbs BSA: 2.04 BP: 150/80 mmHg Indications: Atrial Fibrillation, Hyperlipidemia, Hypertension/HDD, stents 2D Dimensions LA Volume 54.20 mL LA Volume Index 25.90 mL/m2 (M/F) 16-34 M-Mode Dimensions RVDd 2.40 cm (0.9-2.6) LA Diam 3.90 cm (1.9-4.0) LVDd 5.20 cm (3.5-5.7) LVDs 3.59 cm (3.5-5.7) IVSd 1.43 cm (0.6-1.1) PWd 0.86 cm (0.6-1.1) EF (Teich) 58.20% FS 31.00% EDV (Teich) 129.50 mL TAPSE 2.82 (<1.7) ESV (Teich) 54.10 mL LV Diastology E Decel Time 333 (160-240 msec) E/A Ratio 0.65 MED A' 10.60 cm/s LAT A' 4.60 cm/s Aortic Valve AO Peak GR. 6.90 mmHg Mitral Valve MV E Max Elpidio. 55.0 (40-130 cm/s) MV A Velocity 84.0 (40-130 cm/s) E/A Ratio 0.65 MV PHT 98.0 ms Pulmonary Valve PV Peak Velocity 147.0 (50-150 cm/s) Tricuspid Valve TR P. Velocity 177.00 cm/s RAP Estimate 10.00 mmHg RVSP 22.60 mmHg Left Ventricle The left ventricle is normal size. The left ventricular systolic function is normal. The left ventricular ejection fraction is within the normal range. There is increased LV wall thickness. There is normal LV segmental wall motion. Transmitral Doppler flow pattern suggests impaired LV relaxation. LVEF is 55%. Right Ventricle The right ventricle is normal size. The right ventricular systolic function is normal. Atria The left atrium size is normal. The right atrium size is normal. There is no Doppler evidence of interatrial shunt. Aortic Valve The aortic valve is mildly thickened. There is no aortic valvular stenosis. No aortic regurgitation. Mitral Valve The mitral valve is normal in structure. No evidence of mitral valve stenosis. Mild mitral regurgitation. Tricuspid Valve The tricuspid valve leaflets are thin and pliable. Trace tricuspid regurgitation. There is insufficient TR jet to estimate RVSP. Pulmonic Valve The pulmonary valve is normal in structure. Mild pulmonic regurgitation. Great Vessels The aortic root is normal in size. The ascending aorta is normal in size. IVC is normal in size and collapses >50% with inspiration. Pericardium There is no pericardial effusion. Other Information Study Quality: Fair Conclusion Normal biventricular systolic function. Mild MR, mild PI. Electronically signed by : Natali Nichols MD 01/01/2024 11:41:01
== END 2023-12-28 23:59 | disposition home or self-care (01) ==
LOC: RT 08:34
PROVIDERS: PCP Nurse Practitioner Family; Visit Provider Nurse Practitioner Family
DX: I48.91 Unspecified atrial fibrillation (principal); R94.31 Abnormal electrocardiogram [ECG] [EKG]
CPT/HCPCS: 93306

== ENCOUNTER 2024-04-21 17:28 | Emergency (ER) | payer MEDICARE, OTHER, SELFPAY ==
[2024-04-21] VITALS (7 sets, daily range): BP systolic 147–224; BP diastolic 69–123; PULSE 47–60; RESP 18–20; TEMP 36.8–37.6; O2SAT 96–98; BMI 35.2
--- NOTE | 2024-04-21 17:31 | ED_ITS ---
Discharge Plan Disposition Patient Disposition: Home, Self-Care Condition: Good Prescriptions Prescriptions: No Action calcium carbonate [Calcium 500] 500 mg calcium (1,250 mg) tablet 500 mg PO DAILY potassium chloride [Klor-Con] 20 mEq packet 20 meq PO BID atorvastatin [Lipitor] 20 mg tablet 20 mg PO DAILY verapamil 240 mg capsule,ext rel. pellets 24 hr 240 mg PO DAILY ergocalciferol (vitamin D2) 2,000 unit tablet 2,000 unit PO DAILY raloxifene 60 mg tablet 60 mg PO ONCE Qty: 30 11RF buspirone 5 mg tablet 5 mg PO TID sertraline [Zoloft] 25 mg tablet 25 mg PO DAILY doxazosin 4 mg tablet 4 mg PO BID Qty: 60 2RF Referrals Follow up/Referrals: Jeanne Masters APRN [Primary Care Provider] - See instructions Activity Restrictions/Add. Instructions Additional Instructions/Restrictions: Follow-up with your PCP return to ER for any worsening signs or symptoms including intractable headache intractable vomiting change in level of consciousness. You may need further workup of your wrist as well no bony fracture was found that does not rule out ligamentous injury. Consider orthopedics consult if you continue to have lingering problems. Clinical Impressions Clinical Impression: Contusion of hand, left Qualifiers: Encounter type: initial encounter Qualified Code(s): S60.222A - Contusion of left hand, initial encounter Contusion of knee, left Qualifiers: Encounter type: initial encounter Qualified Code(s): S80.02XA - Contusion of left knee, initial encounter Instructions Patient Instructions: How to Prevent Falls Print Language Print Language: Mohawk Discharge ED Provider: Mariusz Haro General Adult HPI <HUSSEIN Norris - Last Filed: 04/21/24 20:51> General Chief complaint: Fall Stated complaint: AO 04-21-24 ,1630 fell both hands and left arm Time Seen by Provider: 04/21/24 17:31 History of Present Illness HPI narrative: Patient presents for evaluation of an accidental fall. Patient tripped over a rug in her home and fell forward injuring her right hand and suffered a carpet burn on her nose. She did not lose consciousness. She is only complaining pain of the right hand and wrist denies loss of consciousness headache neck pain back pain. She also struck her left knee first and is very tender at and around the patella. Patient is neurovascular intact with normal gait and station. She has full range of motion in all 4 extremities although is painful in her right wrist at the ulna. Patient has ecchymosis in the palm of her hand. She is on aspirin and Eliquis. Related Data Home Medications ?Medication ?Instructions ?Recorded ?Confirmed atorvastatin 20 mg tablet (Lipitor) 20 mg PO DAILY cholestrol 11/20/17 07/05/21 calcium carbonate (Calcium 500) 500 mg PO DAILY Supplement 11/20/17 07/05/21 potassium chloride 20 mEq oral 20 meq PO BID Supplement 11/20/17 07/05/21 packet (Klor-Con) verapamil 240 mg 24 hr 240 mg PO DAILY blood pressure 11/21/17 07/05/21 capsule,extended release buspirone 5 mg tablet 5 mg PO TID mood 11/20/18 07/05/21 sertraline 25 mg tablet (Zoloft) 25 mg PO DAILY mood 11/20/18 07/05/21 ergocalciferol (vitamin D2) 50 mcg 2,000 unit PO DAILY Supplement 10/04/19 07/05/21 (2,000 unit) tablet Previous Rx's ?Medication ?Instructions ?Recorded doxazosin 4 mg tablet 4 mg PO BID blood pressure #60 tabs 04/01/20 raloxifene 60 mg tablet 60 mg PO ONCE mood #30 tabs 07/05/21 Allergies Allergy/AdvReac Type Severity Reaction Status Date / Time hydrochlorothiazide AdvReac Severe pancreatiti Verified 07/05/21 10:17 s [facility] <HUSSEIN Norris - Last Filed: 04/21/24 20:51> [facility] Disclaimer: The information contained in this section may have been updated after the patient was seen, as this information can be updated by other users. Social History Smoking Status: Never smoker alcohol intake: never substance use type: denies use current occupational status: retired Travel in the last 8 weeks: None household members: spouse housing: house current occupational exposures/hazards: No caffeine: Yes <HUSSEIN Norris - Last Filed: 04/21/24 20:51> ROS Obtained: Yes Systems reviewed as appropriate & no additional complaints except as documented Physical Exam <HUSSEIN Norris - Last Filed: 04/21/24 20:51> General General appearance: alert and in no apparent distress Neck Neck exam: Present normal inspection and full ROM; Absent tenderness Respiratory Respiratory exam: Present normal lung sounds bilaterally Cardiovascular Cardiovascular exam: Present regular rate, normal rhythm and normal heart sounds Neurological Exam Neurological exam: Present alert, oriented X3 and CN II-XII intact Medical Decision Making <HUSSEIN Norris - Last Filed: 04/21/24 20:51> Medical Records Medical records reviewed: Yes I reviewed the patient's medical records. Pihl Inquiry Pt receiving controlled substance: No Vital Signs: 04/21/24 17:40 04/21/24 18:01 04/21/24 19:01 Temperature 99.6 F Temperature Source Oral Pulse Rate 60 51 L Pulse Rate [Left Radial] 60 Respiratory Rate 20 Blood Pressure 161/69 H 147/76 H Blood Pressure [Right Arm] 218/107 H Blood Pressure Mean [Right Arm] 144 Blood Pressure Source Blood Pressure Position 02 Sat by Pulse Oximetry 97 96 97 Oxygen Delivery Method Room Air 04/21/24 19:55 04/21/24 19:59 04/21/24 20:01 Temperature Temperature Source Pulse Rate 47 L 47 L 51 L Pulse Rate [Left Radial] Respiratory Rate Blood Pressure 224/90 H 203/94 H 209/123 H Blood Pressure [Right Arm] Blood Pressure Mean [Right Arm] Blood Pressure Source Blood Pressure Position 02 Sat by Pulse Oximetry 98 98 98 Oxygen Delivery Method 04/21/24 20:18 Temperature 98.2 F Temperature Source Oral Pulse Rate 48 L Pulse Rate [Left Radial] Respiratory Rate 18 Blood Pressure 209/123 H Blood Pressure [Right Arm] Blood Pressure Mean [Right Arm] Blood Pressure Source Automatic Cuff Blood Pressure Position Sitting 02 Sat by Pulse Oximetry Oxygen Delivery Method Room Air Lab Data Lab results reviewed: Yes I reviewed the patient's lab results. Orders (Tests/Meds): ED MEDICATIONS Discontinued Medications Generic Name Dose Route Start Last Admin Trade Name Freq PRN Reason Stop Dose Admin Acetaminophen 1,000 mg 04/21/24 17:47 04/21/24 17:53 Acetaminophen 500mg Tab PO 04/21/24 17:48 1,000 mg ONCE ONE Administration ORDERS Category Date Time Status CT cervical spine wo con Stat Cat Scan 04/21/24 17:[address] head/brain wo con Stat Cat Scan 04/21/24 17:45 Completed XR forearm LT 2V Stat Exams 04/21/24 17:43 Completed XR hand LT min 3V Stat Exams 04/21/24 17:43 Completed XR knee LT 3V Stat Exams 04/21/24 17:43 Completed XR wrist LT 2V Stat Exams 04/21/24 17:43 Completed Medical Decision Narrative: In summary patient is a 69-year-old female who presents to the emergency department for evaluation of an accidental fall. Patient is typically hypert ensive at 218/107 on arrival normal heart rate respiratory rate O2 sat l, with a temperature of 99.6. Physical exam is remarkable for ecchymosis to the palm of her hand and tenderness to palpation at the ulnar styloid but no palpable bony deformity is appreciated. Patient has full range of motion is neurovascular intact distally in all of her fingers. Patient also has tenderness palpation about the patella but no obvious bony deformity no ecchymosis noted. Patient also has an abrasion along the bridge of her nose but has no midface tenderness to palpation no instability extraocular moods are intact no C-spine tenderness.. Differential diagnosis includes occult intracranial bleed versus facial fracture versus C-spine injury versus forearm fracture versus wrist fracture versus hand fracture versus knee fracture etc. Initial workup will be conducted with CT scan of the head and neck without contrast since plain film x-rays of the forearm wrist and hand on the left. Initial interventions include Tylenol. Initial workup reviewed by me shows that there is no obvious fracture via my informal interpretation of her plain film x-rays and my informal to rotation of her CT imaging shows no acute intracranial process and no acute C-spine fracture.. Upon repeat evaluation patient did report some improvement in her discomfort and more significantly her blood pressures come down to 147/76.. Given this patient is appropriate for discharge with strict return precautions. <Mariusz Haro MD - Last Filed: 04/21/24 23:01> Vital Signs: 04/21/24 17:40 04/21/24 18:01 04/21/24 19:01 Temperature 99.6 F Temperature Source Oral Pulse Rate 60 51 L Pulse Rate [Left Radial] 60 Respiratory Rate 20 Blood Pressure 161/69 H 147/76 H Blood Pressure [Right Arm] 218/107 H Blood Pressure Mean [Right Arm] 144 Blood Pressure Source Blood Pressure Position 02 Sat by Pulse Oximetry 97 96 97 Oxygen Delivery Method Room Air 04/21/24 19:55 04/21/24 19:59 04/21/24 20:01 Temperature Temperature Source Pulse Rate 47 L 47 L 51 L Pulse Rate [Left Radial] Respiratory Rate Blood Pressure 224/90 H 203/94 H 209/123 H Blood Pressure [Right Arm] Blood Pressure Mean [Right Arm] Blood Pressure Source Blood Pressure Position 02 Sat by Pulse Oximetry 98 98 98 Oxygen Delivery Method 04/21/24 20:18 Temperature 98.2 F Temperature Source Oral Pulse Rate 48 L Pulse Rate [Left Radial] Respiratory Rate 18 Blood Pressure 209/123 H Blood Pressure [Right Arm] Blood Pressure Mean [Right Arm] Blood Pressure Source Automatic Cuff Blood Pressure Position Sitting 02 Sat by Pulse Oximetry Oxygen Delivery Method Room Air Orders (Tests/Meds): ED MEDICATIONS Discontinued Medications Generic Name Dose Route Start Last Admin Trade Name Freq PRN Reason Stop Dose Admin Acetaminophen 1,000 mg 04/21/24 17:47 04/21/24 17:53 Acetaminophen 500mg Tab PO 04/21/24 17:48 1,000 mg ONCE ONE Administration ORDERS Category Date Time Status CT cervical spine wo con Stat Cat Scan 04/21/24 17:[address] head/brain wo con Stat Cat Scan 04/21/24 17:45 Completed XR forearm LT 2V Stat Exams 04/21/24 17:43 Completed XR hand LT min 3V Stat Exams 04/21/24 17:43 Completed XR knee LT 3V Stat Exams 04/21/24 17:43 Completed XR wrist LT 2V Stat Exams 04/21/24 17:43 Completed Medical Decision Narrative: In summary patient is a 69-year-old female who presents to the emergency department for evaluation of an accidental fall. Patient is typically hypertensive at 218/107 on arrival normal heart rate respiratory rate O2 sat l, with a temperature of 99.6. Physical exam is remarkable for ecchymosis to the palm of her hand and tenderness to palpation at the ulnar styloid but no palpable bony deformity is appreciated. Patient has full range of motion is neurovascular intact distally in all of her fingers. Patient also has tenderness palpation about the patella but no obvious bony deformity no ecchymosis noted. Patient also has an abrasion along the bridge of her nose but has no midface tenderness to palpation no instability extraocular moods are intact no C-spine tenderness.. Differential diagnosis includes occult intracranial bleed versus facial fracture versus C-spine injury versus forearm fracture versus wrist fracture versus hand fracture versus knee fracture etc. Initial workup will be conducted with CT scan of the head and neck without cont rast since plain film x-rays of the forearm wrist and hand on the left. Initial interventions include Tylenol. Initial workup reviewed by me shows that there is no obvious fracture via my informal interpretation of her plain film x- rays and my informal to rotation of her CT imaging shows no acute intracranial process and no acute C-spine fracture.. Upon repeat evaluation patient did report some improvement in her discomfort and more significantly her blood pressures come down to 147/76.. Given this patient is appropriate for discharge with strict return precautions. I was consulted by the HOMERO, and we discussed the complexity of the problems being addressed. I approved the treatment and management plan for this patient's care in the Emergency Department, thus performing a substantive portion of the medical decision making. Mariusz Haro MD Critical Care <HUSSEIN Norris - Last Filed: 04/21/24 20:51> Critical Care Time Critical Care Time: No
--- NOTE | 2024-04-21 17:39 | PC.NURSE ---
Anastacio TARANGO at BS for pt eval
--- NOTE | 2024-04-21 17:43 | XR_ITS ---
PROCEDURE INFORMATION: Exam: XR Left Knee Exam date and time: 04/21/2024 6:19 PM Age: 69 years old Clinical indication: Injury or trauma; Fall; Blunt trauma; Knee; Left TECHNIQUE: Imaging protocol: Radiologic exam of the left knee. Views: 3 views. Total images: 3 COMPARISON: CR Knee L 04/21/2024 6:19 PM FINDINGS: Bones/joints: Osteopenia. No acute fracture, joint dislocation, or joint effusion. Joint spaces are preserved. No significant degenerative arthropathy. No concerning bone lesions or calcifications. Soft tissues: Unremarkable soft tissues. IMPRESSION: Negative left knee.
--- NOTE | 2024-04-21 17:43 | XR_ITS ---
PROCEDURE INFORMATION: Exam: XR Left Wrist Exam date and time: 04/21/2024 6:27 PM Age: 69 years old Clinical indication: Injury or trauma; Fall; Blunt trauma (contusions or hematomas); Wrist; Left TECHNIQUE: Imaging protocol: Radiologic exam of the left wrist. Views: 1 or 2 views. Total images: 2 COMPARISON: CR Wrist L 04/21/2024 6:27 PM FINDINGS: Bones/joints: Osteopenia. No acute fracture or joint dislocation. Carpal alignment is preserved. Distal radius and ulna are intact. Mild narrowing of the radiocarpal joint. No concerning bone lesions or calcifications. Soft tissues: Mild soft tissue swelling. IMPRESSION: 1. No acute osseous abnormality. 2. Mild soft tissue swelling.
--- NOTE | 2024-04-21 17:43 | XR_ITS ---
PROCEDURE INFORMATION: Exam: XR Left Forearm Exam date and time: 04/21/2024 6:29 PM Age: 69 years old Clinical indication: Injury or trauma; Fall; Blunt trauma (contusions or hematomas); Arm, lower; Left TECHNIQUE: Imaging protocol: Radiologic exam of the left forearm. Views: 2 views. Total images: 2 COMPARISON: CR Forearm L 04/21/2024 6:29 PM FINDINGS: Bones/joints: Osteopenia. No acute fracture or joint dislocation. No concerning bone lesions or calcifications. Joint spaces are preserved. Mild narrowing radiocarpal joint. Minor ulnar negative variance. Probable fracture base of the 5th metacarpal. Soft tissues: Unremarkable soft tissues. IMPRESSION: Negative left forearm.
--- NOTE | 2024-04-21 17:43 | XR_ITS ---
PROCEDURE INFORMATION: Exam: XR Left Hand Exam date and time: 04/21/2024 6:25 PM Age: 69 years old Clinical indication: Injury or trauma; Fall; Blunt trauma (contusions or hematomas); Hand; Left TECHNIQUE: Imaging protocol: Radiologic exam of the left hand. Views: 3 or more views. Total images: 3 COMPARISON: CR Hand L 04/21/2024 6:25 PM FINDINGS: Bones/joints: Suspect acute transverse fracture base of the 5th metacarpal with a bandlike area of sclerosis and disruption of normal trabecular markings compared with November 22, 2017. Otherwise, no acute osseous abnormality. Joint spaces are preserved. No concerning bone lesions. Proximal phalanx of the 4th finger is obscured by a ring. Soft tissues: Soft tissue swelling near the base of the 5th metacarpal. IMPRESSION: Suspect acute fracture base of the 5th metacarpal as described.
--- NOTE | 2024-04-21 17:45 | CT_ITS ---
PROCEDURE INFORMATION: Exam: CT Cervical Spine Without Contrast Exam date and time: 04/21/2024 6:25 PM Age: 69 years old Clinical indication: Injury or trauma; Fall; Blunt trauma TECHNIQUE: Imaging protocol: Computed tomography of the cervical spine without contrast. Radiation optimization: All CT scans at this facility use at least one of these dose optimization techniques: automated exposure control; mA and/or kV adjustment per patient size (includes targeted exams where dose is matched to clinical indication); or iterative reconstruction. COMPARISON: CT HEAD/BRAIN WO CON 04/21/2024 6:23 PM FINDINGS: Bones: No acute fracture. Moderate degenerative disc space loss is identified at C4-C5, C5-C6. Lungs: Lung apices are normal. Soft tissues: Unremarkable. IMPRESSION: No evidence for acute fracture.
--- NOTE | 2024-04-21 17:45 | CT_ITS ---
PROCEDURE INFORMATION: Exam: CT Head Without Contrast Exam date and time: 04/21/2024 6:23 PM Age: 69 years old Clinical indication: Injury or trauma; Fall; Blunt trauma (contusions or hematomas) TECHNIQUE: Imaging protocol: Computed tomography of the head without contrast. Radiation optimization: All CT scans at this facility use at least one of these dose optimization techniques: automated exposure control; mA and/or kV adjustment per patient size (includes targeted exams where dose is matched to clinical indication); or iterative reconstruction. COMPARISON: MR HEAD/BRAIN WO/W CON 12/08/2023 7:30 AM FINDINGS: Brain: There are mild bilateral periventricular low-attenuation white matter foci consistent with cerebral small vessel disease. Old lacunar infarct within the right cerebellar hemisphere. Cerebral ventricles: No ventriculomegaly. Paranasal sinuses: Visualized sinuses are unremarkable. No fluid levels. Mastoid air cells: Visualized mastoid air cells are well aerated. Bones: Unremarkable. No acute fracture. Soft tissues: Unremarkable. IMPRESSION: Senescent changes within the brain as discussed.No acute abnormalities are identified.
[2024-04-21] MEDS: ACETAMINOPHEN 500MG TAB 1000 MG PO (17:53)
--- NOTE | 2024-04-21 18:02 | PC.NURSE ---
Rouned on pt. No needs voiced at this time. Call light within reach.
--- NOTE | 2024-04-21 18:19 | PC.NURSE ---
patient gone to CT at this time.
--- NOTE | 2024-04-21 18:42 | PC.NURSE ---
patient back in room at this time.
--- NOTE | 2024-04-21 19:18 | PC.NURSE ---
rounded on pt at this time. pt voices no needs.
--- NOTE | 2024-04-21 20:09 | PC.NURSE ---
Addendum entered by Kandice Olmedo RN 04/21/24 20:15: D Gayla SAVAGE and MD Haro also aware of pts heart rate in 40's. Pt asymptomatic and states she will take meds when she gets home. Original Note: Pt sitting in bed . aware of high BPs. Pt reports she did not take her BP meds this morning. aware.
== END 2024-04-21 20:19 | disposition home or self-care (01) ==
PROVIDERS: Emergency Provider Emergency Medicine; PCP Nurse Practitioner Family
DX: S60.222A Contusion of left hand, initial encounter (principal); S80.02XA Contusion of left knee, initial encounter; S00.31XA Abrasion of nose, initial encounter; W01.10XA Fall on same level from slipping, tripping and stumbling with subsequent striking against unspecified object, initial encounter
CPT/HCPCS: 70450; 72125; 73090; 73100; 73130; 73562; 99285

== ENCOUNTER 2024-06-06 10:56 | Outpatient (CLI) | payer MEDICARE, OTHER, SELFPAY ==
--- NOTE | 2024-06-06 11:02 | XR_ITS ---
FINAL REPORT CLINICAL HISTORY: CLOSED NONDISPLACED FRACTURE OF BASE OF FIFTH METACARPAL COMPARISON: 04/21/2024 FINDINGS: LEFT HAND Three views demonstrate no acute fracture or dislocation. There is increased sclerosis and lucency at the base of the fifth metacarpal consistent with a healing fracture. There is moderate DIP and PIP joint space narrowing consistent with osteoarthritis. Soft tissues unremarkable. IMPRESSION: Healing fracture base of the fifth metacarpal. Reviewed, Interpreted and Dictated by Ruben Almeida MD Transcribed by Fatimah Corbin Authenticated and [facility]
== END 2024-06-06 23:59 | disposition home or self-care (01) ==
LOC: RAD 10:58
PROVIDERS: PCP Nurse Practitioner Family; Visit Provider Nurse Practitioner Family
DX: M79.642 Pain in left hand (principal); S62.347D Nondisplaced fracture of base of fifth metacarpal bone, left hand, subsequent encounter for fracture with routine healing
CPT/HCPCS: 73130

== ENCOUNTER 2024-09-17 08:22 | Outpatient (CLI) | payer MEDICARE, OTHER, SELFPAY ==
--- NOTE | 2024-09-17 08:26 | MM_ITS ---
PROCEDURE INFORMATION: Exam: MG Bilateral Screening 3D Mammography Exam date and time: 09/17/2024 8:27 AM Age: 69 years old Clinical indication: Screening examination TECHNIQUE: Imaging protocol: Bilateral Screening tomosynthesis and 2D mammography including computer-aided detection (CAD) when performed. COMPARISON: 1. MG MM DIG SCREENING MAMM BI W/CAD 08/01/2023 12:55 PM 2. MG MM DIG SCREENING MAMM BI W/CAD 07/22/2022 8:33 AM FINDINGS: MAMMOGRAPHY: Breast composition: There are scattered areas of fibroglandular density. Mass: None. Architectural distortion: None. Calcifications: No suspicious calcifications. Asymmetric density: None. Skin thickening: None. Axillary adenopathy: None. IMPRESSION: No mammographic evidence of malignancy. Annual screening is recommended unless otherwise clinically indicated. ASSESSMENT: BI-RADS Category 1: Negative.
== END 2024-09-17 23:59 | disposition home or self-care (01) ==
LOC: RAD 08:23
PROVIDERS: PCP Nurse Practitioner Family; Visit Provider Nurse Practitioner Family
DX: Z12.31 Encounter for screening mammogram for malignant neoplasm of breast (principal)
CPT/HCPCS: 77063; 77067

== ENCOUNTER 2025-01-07 09:49 | Outpatient (CLI) | payer MEDICARE, OTHER, SELFPAY ==
--- NOTE | 2025-01-07 09:53 | US_ITS ---
FINAL REPORT TECHNIQUE: Ultrasound images of the kidneys were obtained. CLINICAL HISTORY: STAGE 3 CHRONICE KIDNEY DISEASE COMPARISON: None FINDINGS: RENAL ULTRASOUND The right kidney measures 10.8 cm in length. There is no hydronephrosis or mass. There is mild renal cortical thinning but normal echogenicity. The left kidney measures 9.9 cm in length. There is no hydronephrosis or mass. There is mild renal cortical thinning but normal echogenicity. IMPRESSION: Mild bilateral renal cortical thinning. Reviewed, Interpreted and Dictated by Kate Henson MD Transcribed by Fatimah Corbin Authenticated and [facility]
== END 2025-01-07 23:59 | disposition home or self-care (01) ==
LOC: RAD 09:50
PROVIDERS: PCP Nurse Practitioner Family; Visit Provider Nurse Practitioner Family
DX: N18.31 Chronic kidney disease, stage 3a (principal)
CPT/HCPCS: 76770

== ENCOUNTER 2025-01-31 09:15 | Outpatient (CLI) | payer MEDICARE, OTHER, SELFPAY ==
--- NOTE | 2025-01-31 09:19 | CA_ITS ---
APPROVED REPORT EXAM: Comprehensive 2D, Doppler, and color-flow Echocardiogram [employer] Engine Inspector: Kristin Garay RVT Ht: 5 ft 5 in Wt: 213lbs BSA: 2.03 BP: 137/70 mmHg Indications: SOA,BRADYCARDIA,CAD,ABN EKG,FATIGUE,MR 2D Dimensions LA Volume 38.10 mL LA Volume Index 18.77 mL/m2 (M/F) 16-34 M-Mode Dimensions RVDd 2.63 cm (0.9-2.6) LA Diam 3.88 cm (1.9-4.0) LVDd 5.17 cm (3.5-5.7) LVDs 3.34 cm (3.5-5.7) IVSd 1.13 cm (0.6-1.1) PWd 0.70 cm (0.6-1.1) EF (Teich) 64.50% FS 35.40% EDV (Teich) 127.80 mL TAPSE 2.90 (<1.7) ESV (Teich) 45.40 mL LV Diastology E Decel Time 257 (160-240 msec) E/A Ratio 0.8 Aortic Valve CANDELARIA Index 1.26 cm2/m2 AoV Peak Elpidio. 128.0 (50-130 cm/s) AI PHT 2330.00 ms AO Peak GR. 6.60 mmHg AO Mean GR. 4.00 (<5 mmHg) AO VTI 26.6 (18-25 cm) CANDELARIA (VTI) 2.62 (2.5-4.5 cm2) Mitral Valve MV E Max Elpidio. 62.0 (40-130 cm/s) MV A Velocity 80.0 (40-130 cm/s) E/A Ratio 0.77 MV PHT 75.0 ms Pulmonary Valve PV Peak Velocity 74.0 (50-150 cm/s) Tricuspid Valve TR P. Velocity 250.00 cm/s RAP Estimate 10.00 mmHg RVSP 35.00 mmHg Left Ventricle The left ventricle is normal size. The left ventricular systolic function is low normal. There is increased LV wall thickness. There is normal LV segmental wall motion. Diastolic function is normal. LVEF is 50%. Right Ventricle The right ventricle is normal size. The right ventricular systolic function is normal. Atria Left atrium is mildly dilated. Right atrium is mildly dilated. There is no Doppler evidence of interatrial shunt. Aortic Valve Aortic valve is mildly thickened. There is no aortic valvular stenosis. Trace aortic regurgitation. Mitral Valve The mitral valve is normal in structure. No evidence of mitral valve stenosis. Trace mitral regurgitation. Tricuspid Valve Tricuspid valve is grossly normal in structure and function. Mild tricuspid regurgitation. RVSP is 20-25 mmHg. Pulmonic Valve The pulmonary valve is normal in structure. Mild pulmonic regurgitation. Great Vessels The aortic root is normal in size. IVC is normal in size and collapses >50% with inspiration. Pericardium There is no pericardial effusion. Conclusion Low normal LV systolic function (LVEF 50%). Mild biatrial dilation. Mild TR, mild PI. Electronically signed by : Natali Nichols MD 02/09/2025 20:40:32
[2025-01-31 10:20] LABS: Chloride 108 mmol/L (98-107)
[2025-01-31 10:21] LABS: Potassium 4.5 mmoL/L (3.5-5.1); Sodium 140 mmol/L (136-145)
[2025-01-31 10:24] LABS: Anion Gap 9.5 mEq/L (5-15); Blood Urea Nitrogen 21 mg/dl (7-17); Calcium 9.5 mg/dl (8.4-10.2); Carbon Dioxide 27 mmol/L (22.0-30.0); Estimated Glomerular Filt Rate 34 ml/min (>60); GFR (African American) 41 ML/MIN (>60); Glucose 99 mg/dl (74-100); Magnesium 1.6 mg/dl (1.6-2.3)
== END 2025-01-31 23:59 | disposition home or self-care (01) ==
LOC: RT 09:16
PROVIDERS: PCP Nurse Practitioner Family; Visit Provider Internal Medicine
DX: I08.8 Other rheumatic multiple valve diseases (principal); I11.9 Hypertensive heart disease without heart failure; I25.10 Atherosclerotic heart disease of native coronary artery without angina pectoris; E78.5 Hyperlipidemia, unspecified; R00.1 Bradycardia, unspecified; R94.31 Abnormal electrocardiogram [ECG] [EKG]; Z95.5 Presence of coronary angioplasty implant and graft
CPT/HCPCS: 36415; 80048; 83735; 93306